=== PATIENT | female | born 1970 | race Caucasian/White ===

== ENCOUNTER 2016-05-10 11:18 | Outpatient (CLI) | payer OTHER | END 2016-05-10 11:19 | disposition home or self-care (01) | DX: N95.9 Unspecified menopausal and perimenopausal disorder (principal); R53.83 Other fatigue ==

== ENCOUNTER 2016-05-18 13:11 | Outpatient (CLI) | payer BC, OTHER | END 2016-05-18 13:12 | disposition home or self-care (01) | DX: N83.292 Other ovarian cyst, left side (principal) ==

== ENCOUNTER 2016-10-26 17:48 | Outpatient (CLI) | payer OTHER | END 2016-10-26 17:49 | disposition home or self-care (01) | LOC: DI 17:48 | PROVIDERS: ATTEND Physician Assistant Medical | DX: R51 Headache (principal); Z53.9 Procedure and treatment not carried out, unspecified reason ==

== ENCOUNTER 2016-10-26 17:59 | Outpatient (CLI) | payer OTHER ==
--- NOTE | 2016-10-27 09:22 | XRAY Report ---
FOUR VIEW PARANASAL SINUSES: 10/26/2016 CLINICAL INDICATION: Chronic sinusitis. FINDINGS: AP, Goldstein, bilateral lateral views of the paranasal sinuses demonstrate right greater ashwin n left maxillary mucosal thickening. No air fluid levels are seen. The septum is midline. No osseous destruction is appreciated. IMPRESSION: RIGHT GREATER THAN LEFT MAXILLARY MUCOSAL THICKENING. JOB #: [id number] EXT JOB #:[id number]
== END 2016-10-26 23:59 | disposition home or self-care (01) ==
LOC: DI 17:59
PROVIDERS: ATTEND Physician Assistant Medical
DX: R51 Headache (principal); R93.8 Abnormal findings on diagnostic imaging of other specified body structures
CPT/HCPCS: 70220

== ENCOUNTER 2017-11-14 08:24 | Outpatient (CLI) | payer OTHER ==
[2017-11-14 11:26] LABS: CALCIUM 8.8 mg/dL (8.5-10.3); CARBON DIOXIDE - CO2 27 mmol/L (21-32); CHLORIDE 103 mmol/L (101-111); GLUCOSE 85 mg/dL (70-100); SODIUM 136 mmol/L (135-145)
[2017-11-14 11:31] LABS: BASOPHILS # (AUTO) 0.1 10^3/uL (0.0-0.1); BASOPHILS % (AUTO) 0.8 %; EOSINOPHILS # (AUTO) 0.1 10^3/uL (0.0-0.7); EOSINOPHILS % (AUTO) 2.1 %; HGB - HEMOGLOBIN 12.9 g/dL (12.0-16.0); LYMPHOCYTES # (AUTO) 1.2 10^3/uL (1.5-3.5); LYMPHOCYTES % (AUTO) 18.2 %; MEAN CORPUSCULAR HEMOGLOBIN 32.6 pg (27.0-31.0); MEAN PLATELET VOLUME 9.2 fL (7.9-10.8); MONOCYTES # (AUTO) 0.5 10^3/uL (0.0-1.0); MONOCYTES % (AUTO) 7.5 %; NEUTROPHILS # (AUTO) 4.6 10^3/uL (1.5-6.6); NEUTROPHILS % (AUTO) 71.4 %; PLT - PLATELET COUNT 243 10^3/uL (130-450); RED BLOOD COUNT 3.95 10^6/uL (4.20-5.40); RED CELL DISTRIBUTION WIDTH 13.6 % (12.0-15.0); WHITE BLOOD COUNT 6.4 x10^3/uL (4.8-10.8)
[2017-11-14 11:45] LABS: ALBUMIN 3.9 g/dL (3.2-5.5); ALBUMIN/GLOBULIN RATIO 1.4 (1.0-2.2); ALKALINE PHOSPHATASE 40 IU/L (42-121); ALT ALANINE AMINOTRANSFERASE 33 IU/L (10-60); AST ASPARTATE AMINOTRANSFERASE 30 IU/L (10-42); BILIRUBIN,TOTAL 0.9 mg/dL (0.2-1.0); BUN - BLOOD UREA NITROGEN 18 mg/dL (6-20); CHOL/HDL RATIO 3.3 (<4.4); CHOLESTEROL 237 mg/dL; CREATININE 0.7 mg/dL (0.4-1.0); GFR - MDRD 89 (>89); HDL CHOLESTEROL 72 mg/dL; LDL CHOLESTEROL,CALCULATED 154 mg/dL; LDL/HDL RATIO 2.1 (<4.4); TOTAL PROTEIN 6.7 g/dL (6.7-8.2); VLDL CHOLESTEROL 11 mg/dL
== END 2017-11-14 08:25 | disposition home or self-care (01) ==
LOC: LAB.F 08:24
PROVIDERS: ATTEND Physician Assistant Medical
DX: Z79.890 Hormone replacement therapy (principal); Z51.81 Encounter for therapeutic drug level monitoring; Z79.899 Other long term (current) drug therapy; Z83.49 Family history of other endocrine, nutritional and metabolic diseases; E78.5 Hyperlipidemia, unspecified
CPT/HCPCS: 36415; 80053; 80061; 83721; 85025

== ENCOUNTER 2019-05-28 08:38 | Outpatient (CLI) | payer BC, OTHER ==
[2019-05-28 17:37] LABS: CHOL/HDL RATIO 3.2 (<4.4); CHOLESTEROL 236 mg/dL; HDL CHOLESTEROL 73 mg/dL; LDL CHOLESTEROL,CALCULATED 153 mg/dL; LDL/HDL RATIO 2.1 (<4.4); VLDL CHOLESTEROL 10 mg/dL
== END 2019-05-28 08:39 | disposition home or self-care (01) ==
LOC: LAB.S 08:38
PROVIDERS: ATTEND Physician Assistant
DX: E78.5 Hyperlipidemia, unspecified (principal)
CPT/HCPCS: 36415; 80061; 83721

== ENCOUNTER 2019-12-10 12:54 | Outpatient (CLI) | payer BC ==
--- NOTE | 2019-12-11 13:38 | Mammography Report ---
BILATERAL DIGITAL SCREENING MAMMOGRAM 3D/2D: 12/10/2019 CLINICAL: Routine screening. Comparison is made to exams dated: 11/23/2015 mammogram - [facility] and 08/09/2010 m ammogram - [facility]. There are scattered fibroglandular elements in both breasts. There is a 1.6 cm oval equal density mass with a spiculated margin in the left breast at 1 o'clock po sterior depth. No other significant masses, calcifications, or other findings are seen in either breast. IMPRESSION: INCOMPLETE: NEEDS ADDITIONAL IMAGING EVALUATION The 1.6 cm oval equal density mass in the left breast is indeterminate. Mediolateral and spot compre ssion views as well as additional views with possible ultrasound are recommended. This exam was interpreted at Station ID: [id number]. NOTE: For mammograms, a report in lay terms will be sent to the patient. Approximately 15% of breast malignancies will not be visualized mammographically. In the management of a palpable breast mass, a negative mammogram must not discourage biopsy of a clinically suspicious lesion. Electronically Signed By: Pavel Aguiar M.D. ddp/penrad:12/10/2019 16:21:19 ACR BI-RADS Category 0: Incomplete 3340F PARENCHYMAL PATTERN: (A) - The breast(s) demonstrate(s) scattered fibroglandular densities. BI-RADS CATEGORY: (0) - 0 Mammo and [place] [id number] Immediate follow-up LATERALITY: (B)
== END 2019-12-10 12:55 | disposition home or self-care (01) ==
LOC: DI 12:54
PROVIDERS: ATTEND Registered Nurse
DX: Z00.00 Encounter for general adult medical examination without abnormal findings (principal); R92.8 Other abnormal and inconclusive findings on diagnostic imaging of breast
CPT/HCPCS: 77063; 77067

== ENCOUNTER 2019-12-26 08:23 | Outpatient (CLI) | payer BC ==
--- NOTE | 2019-12-29 16:19 | Mammography Report ---
UNILATERAL LEFT DIGITAL DIAGNOSTIC MAMMOGRAM 3D/2D: 12/26/2019 CLINICAL: Patient returns today to evaluate a density in the left breast. Comparison is made to exams dated: 12/10/2019 mammogram, 11/23/2015 mammogram - [facility], and 08/09/2010 mammogram - [facility]. There are scattered fibroglandular eleme nts in left breast. There is a 1.7 cm x 1 cm irregular equal density mass with a spiculated margin in the left breast at 3 o'clock posterior depth. No other significant masses or calcifications are seen in the breast. IMPRESSION: INCOMPLETE: NEEDS ADDITIONAL IMAGING EVALUATION The 1.7 cm x 1 cm irregular equal density mass in the left breast is indeterminate. An ultrasound is recommended for further evaluation and is scheduled to immediately follow this study . This exam was interpreted at Station ID: [id number]. NOTE: For mammograms, a report in lay terms will be sent to the patient. Approximately 15% of breast malignancies will not be visualized mammographically. In the management of a palpable breast mass, a negative mammogram must not discourage biopsy of a clinically suspicious lesion. Electronically Signed By: Bharath Hawthorne M.D. aty/:12/26/2019 08:58:31 ACR BI-RADS Category 0: Incomplete 3340F PARENCHYMAL PATTERN: (A) - The breast(s) demonstrate(s) scattered fibroglandular densities. BI-RADS CATEGORY: (0) - 0 Ultrasound [id number] Immediate follow-up LATERALITY: (L)
--- NOTE | 2019-12-29 16:19 | Ultrasound Report ---
LIMITED ULTRASOUND OF LEFT BREAST AND AXILLA: 12/26/2019 CLINICAL: Patient returns for additional imaging over a suspected mass in the left breast. Comparison is made to exams dated: 12/26/2019 mammogram, 12/10/2019 mammogram, 11/23/2015 mammogram - [facility], and 08/09/2010 mammogram - [facility]. Color flow and real-time ultrasound of the left breast axilla were performed. Prado scale images of the real-time examination were reviewed. There is a 1.3 cm x 1.4 cm x 1.3 cm irregular mass with an indistinct and angular margins in the left breast at 3 o'clock posterior depth 7 cm from the nipple. This irregular mass is hypoechoic with po sterior acoustic shadowing. This correlates with mammography findings. Color flow imaging demonstra guillermo that there is vascularity present. No significant abnormalities were seen sonographically in the left axilla. IMPRESSION: HIGHLY SUGGESTIVE OF MALIGNANCY The 1.7 cm x 1 cm irregular mass in the left breast is highly suggestive of malignancy. An ultrasoun d guided biopsy is recommended. Findings and recommendations were discussed with the patient by Dr. Queen during today's visit. This exam was interpreted at Station ID: [id number]. Electronically Signed By: Bharath Hawthorne M.D. aty/:12/26/2019 10:14:35 Ultrasound BI-RADS: 5 Highly suggestive of malignancy BI-RADS CATEGORY: (5) - 5 None [id number] Immediate follow-up LATERALITY: ()
== END 2019-12-26 08:24 | disposition home or self-care (01) ==
LOC: DI 08:23
PROVIDERS: ATTEND Registered Nurse
DX: R92.8 Other abnormal and inconclusive findings on diagnostic imaging of breast (principal); N63.25 Unspecified lump in the left breast, overlapping quadrants
CPT/HCPCS: 76642

== ENCOUNTER 2019-12-30 12:49 | Outpatient (CLI) | payer BC ==
[~2019-12-30 12:49] MED LIST: BUFFERED LIDOCAINE 10 ML SYRINGE ONE
[2019-12-30] MEDS ORDERED: BUFFERED LIDOCAINE 10 ML SYRINGE IU ONE (15:04)
--- NOTE | 2020-01-01 12:22 | Mammography Report ---
UNILATERAL LEFT DIGITAL DIAGNOSTIC MAMMOGRAM 3D/2D: 12/30/2019 CLINICAL: Post left breast ultrasound biopsy clip placement imaging. Comparison is made to exams dated: 12/26/2019 ultrasound, 12/26/2019 mammogram, 12/10/2019 mammogram, a nd 11/23/2015 mammogram - [facility]. There are scattered fibroglandular elements in left breast. There is a biopsy marker at the site of the previously described suspicious mass at the 3 o'clock pos terior depth. IMPRESSION: POST PROCEDURE MAMMOGRAM FOR MARKER PLACEMENT Successful biopsy marker placement at site of the biopsy for suspicious mass at the 3 o'clock positio n, posterior depth. This exam was interpreted at Station ID: [id number]. NOTE: For mammograms, a report in lay terms will be sent to the patient. Approximately 15% of breast malignancies will not be visualized mammographically. In the management of a palpable breast mass, a negative mammogram must not discourage biopsy of a clinically suspicious lesion. Electronically Signed By: Bharath Hawthorne M.D. aty/:01/01/2020 11:42:40 ACR BI-RADS Category Post-procedure mammogram for marker placement PARENCHYMAL PATTERN: (A) - The breast(s) demonstrate(s) scattered fibroglandular densities. BI-RADS CATEGORY: () - Unspecified - other recall n/a LATERALITY: (B)
--- NOTE | 2020-01-01 12:22 | Ultrasound Report ---
ULTRASOUND GUIDED BIOPSY LEFT BREAST USING VACUUM DEVICE WITH MARKING DEVICE INSERTED AND POST DIGITA L MAMMOGRAPHIC IMAGIN12/30/2019 CLINICAL: Left breast mass. PATIENT CONSENT: Risks (minor bleeding, infection, vasovagal reaction and repeat procedure), benefits and alternatives were explained to the patient and written informed consent was obtained. Correlation is made to exams dated: 12/30/2019 mammogram, 12/26/2019 ultrasound, 12/26/2019 mammogram, 12/10/2019 mammogram, 11/23/2015 mammogram - [facility], and 08/09/2010 mammogram - [facility]. An ultrasound guided biopsy using real-time ultrasound was performed for the 1.3 cm x 1.4 cm x 1.3 cm irregular shaped mass located in the left breast at 3 o'clock posterior depth 7 cm from the nipple. The skin was prepped in the usual manner. Local anesthetic was administered to the access site. A skin radha was made in the breast. The abnormality was approached from the lateral aspect. A 13 gaug e biopsy needle was placed adjacent to the abnormality under ultrasound guidance. Once the needle wa s documented to be in the correct location, six specimens were obtained using the Mammotome biopsy sy stem. A clip was inserted into the biopsy cavity. A sterile dressing was applied to the access site . Post procedure digital mammographic imaging demonstrates the location device at the targeted area. The specimens were sent to the laboratory for pathological analysis. IMPRESSION: ULTRASOUND GUIDED BIOPSY MALIGNANT Ultrasound guided biopsy of the 1.3 cm x 1.4 cm x 1.3 cm mass in the left breast at 3 o'clock posteri or depth 7 cm from the nipple was successful. 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 Pathology results are concordant with mammography and ul trasound findings. Surgical and oncologic consultation recommended. This exam was interpreted at Station ID: [id number]. Bharath costa,lise/:01/01/2020 07:56:18 BI-RADS CATEGORY: () - Unspecified - other recall n/a LATERALITY: (B)
== END 2019-12-30 12:50 | disposition home or self-care (01) ==
LOC: DI 12:49
PROVIDERS: ATTEND Registered Nurse
DX: C50.812 Malignant neoplasm of overlapping sites of left female breast (principal); Z17.0 Estrogen receptor positive status [ER+]
CPT/HCPCS: 19083

== ENCOUNTER 2021-01-11 13:53 | Outpatient (CLI) | payer BC ==
[2021-01-14 12:30] LABS: NIL 0.01 IU/mL; TB2-NIL 0.01 IU/mL
== END 2021-01-11 13:54 | disposition home or self-care (01) ==
LOC: LAB.S 13:53
PROVIDERS: ATTEND Registered Nurse
DX: Z00.00 Encounter for general adult medical examination without abnormal findings (principal)
CPT/HCPCS: 36415; 86480

== ENCOUNTER 2023-01-26 12:55 | Outpatient (CLI) | payer BC | END 2023-01-26 12:56 | disposition home or self-care (01) | LOC: LAB 12:55 | DX: M85.859 Other specified disorders of bone density and structure, unspecified thigh (principal); R79.89 Other specified abnormal findings of blood chemistry; Z78.9 Other specified health status | CPT/HCPCS: 36415; 82306 ==

== ENCOUNTER 2023-05-31 09:16 | Outpatient (CLI) | payer BC ==
[2023-05-31 09:34] LABS: BASOPHILS % (AUTO) 0.8 %; EOSINOPHILS # (AUTO) 0.1 10^3/uL (0.0-0.7); EOSINOPHILS % (AUTO) 2.5 %; HGB - HEMOGLOBIN 12.8 g/dL (12.0-16.0); LYMPHOCYTES # (AUTO) 1.5 10^3/uL (1.5-3.5); LYMPHOCYTES % (AUTO) 29.8 %; MEAN CORPUSCULAR HEMOGLOBIN 31.2 pg (27.0-31.0); MEAN CORPUSCULAR VOLUME 97.6 fL (81.0-99.0); MEAN PLATELET VOLUME 9.7 fL (7.9-10.8); MONOCYTES # (AUTO) 0.4 10^3/uL (0.0-1.0); MONOCYTES % (AUTO) 8.4 %; NEUTROPHILS % (AUTO) 58.1 %; PLT - PLATELET COUNT 271 10^3/uL (130-450); RED CELL DISTRIBUTION WIDTH 13.1 % (12.0-15.0); WHITE BLOOD COUNT 5.1 x10^3/uL (4.8-10.8)
[2023-05-31 10:37] LABS: ALBUMIN 4.3 g/dL (3.2-5.5); ALBUMIN/GLOBULIN RATIO 1.9 (1.0-2.2); ALKALINE PHOSPHATASE 57 IU/L (42-121); ALT ALANINE AMINOTRANSFERASE 20 IU/L (10-60); AST ASPARTATE AMINOTRANSFERASE 18 IU/L (10-42); BILIRUBIN,TOTAL 0.5 mg/dL (0.2-1.0); BUN - BLOOD UREA NITROGEN 15 mg/dL (6-20); CALCIUM 9.6 mg/dL (8.5-10.3); CARBON DIOXIDE - CO2 32 mmol/L (21-32); CHLORIDE 104 mmol/L (101-111); CHOL/HDL RATIO 5.8 (<4.4); CHOLESTEROL 292 mg/dL; CREATININE 0.7 mg/dL (0.6-1.3); GFR - MDRD 87 (>89); GLUCOSE 95 mg/dL (74-104); HDL CHOLESTEROL 50 mg/dL; LDL CHOLESTEROL,CALCULATED 215 mg/dL; LDL/HDL RATIO 4.3 (<4.4); POTASSIUM 4.2 mmol/L (3.5-4.5); SODIUM 139 mmol/L (135-145); TOTAL PROTEIN 6.6 g/dL (6.4-8.9); TRIGLYCERIDES 137 mg/dL (48-352); VLDL CHOLESTEROL 27 mg/dL
== END 2023-05-31 09:17 | disposition home or self-care (01) ==
LOC: LAB 09:16
PROVIDERS: ATTEND Internal Medicine Advanced Heart Failure and Transplant Cardiology
DX: Z51.81 Encounter for therapeutic drug level monitoring (principal); Z79.899 Other long term (current) drug therapy; Z85.3 Personal history of malignant neoplasm of breast; Z92.3 Personal history of irradiation; Z82.49 Family history of ischemic heart disease and other diseases of the circulatory system
CPT/HCPCS: 36415; 80053; 80061; 83721; 83880; 84484; 85025